=== PATIENT | female | born 1985 | race Two or more races ===

== ENCOUNTER 2017-10-29 16:33 | Emergency (ER) | payer BC ==
[2017-10-29 17:20] VITALS: BP 111/72; PULSE 88; RESP 18; TEMP 100.1
[2017-10-29] MEDS ORDERED: ONDANSETRON ODT 4 MG TAB PO STA (18:42)
--- NOTE | 2017-10-29 18:46 | ED ---
Head Injury HPI - General Chief complaint: Head Injury Stated complaint: Head Injury Time Seen by Provider: 10/29/17 18:28 Source: patient, RN notes reviewed Mode of arrival: ambulatory Limitations: no limitations - History of Present Illness Initial comments: This is a 32-year-old female who presents to the emergency department with chief complaint of head injury. Patient states that yesterday morning she was sledding. She states that she fell and hit the right side of her head twice. Patient states that since yesterday she has had intermittent dizziness and constant nausea. She denies any episodes of vomiting. She denies any loss of consciousness. She states that she has a mild headache on the left side of her head. She also complains of a neck muscle strain that makes it difficult for her to shift her head to the right due to the pain. She denies any vision changes. Denies any recent illnesses. She does have a fever on presentation, but states that she feels well. Denies sore throat, cough, abdominal pain, diarrhea or constipation, dysuria or hematuria. - Related Data Home Medications Medication Instructions Recorded Confirmed Ibuprofen [Motrin Ib] 400 mg PO TID PRN 10/29/17 10/29/17 Allergies/Adverse reactions: Allergies Allergy/AdvReac Type Severity Reaction Status Date / Time neomycin Allergy Rash/Hives Verified 10/29/17 18:50 Review of Systems ROS Statement: Those systems with pertinent positive or pertinent negative responses have been documented in the HPI. ROS Other: All systems not noted in ROS Statement are negative. Past Medical History Additional Past Medical History / Comment(s): kidney stones, concussion History of Any Multi-Drug Resistant Organisms: None Reported Past Surgical History: No Surgical Hx Reported Past Psychological History: No Psychological Hx Reported Smoking Status: Never smoker Past Alcohol Use History: Occasional Past Drug Use History: None Reported General Exam Limitations: no limitations Course Vital Signs 10/29/17 17:17 Temperature 100.1 F H Pulse Rate 88 Respiratory 18 Rate Blood Pressure 111/72 O2 Sat by Pulse 100 Oximetry Medical Decision Making - Medical Decision Making This is a 32-year-old female who presents to the emergency department with chief complaint of head injury. Patient states that she hit her head 2 times on the ground yesterday morning while sledding. She complains of intermittent dizziness and constant nausea as well as a mild headache and neck muscle strain since that time. Denies loss of consciousness. Computed tomography scan of the brain revealed no intracranial hemorrhages or other acute abnormalities. Patient suffering from a concussion. She is to follow-up with her primary care provider in 1-2 days. She is to rest and refrain from any activity that causes symptoms. Patient is in no acute distress and will be discharged home. She will be given Zofran to help with her nausea. Patient is in agreement with plan and voices understanding. All questions were answered. - Radiology Data Radiology results: report reviewed CT brain without contrast conclusion: Negative computed tomography scan of the brain. Normal exam. Disposition Clinical Impression: Concussion without loss of consciousness Disposition: HOME SELF-CARE Condition: Good Instructions: Concussion (ED) Additional Instructions: Please take medications as prescribed. Please rest and refrain from any activity that causes symptoms including: dizziness, nausea, headache or difficulty concentrating. Please follow up with primary care provider within 1- 2 days. Return to emergency department if symptoms should worsen or any concerns arise. Referrals: Osmani Regalado MD [Primary Care Provider] - 1-2 days Time of Disposition: 19:12
--- NOTE | 2017-10-29 19:06 | CT ---
EXAMINATION TYPE: CT brain wo con DATE OF EXAM: 10/29/2017 COMPARISON: NONE HISTORY: Slip and fall. CT DLP: 1112 mGycm. Automated Exposure Control for Dose Reduction was Utilized. TECHNIQUE: CT scan of the head is performed without contrast. FINDINGS: Ventricles and sulci appear normal. There is no mass effect nor midline shift. There is no sign of intracranial hemorrhage. The calvarium appears intact. The skull base appears intact. CONCLUSION: Negative CT scan of the brain. Normal exam.
[2017-10-29] MEDS ORDERED: ONDANSETRON 4 MG ODT STARTER PACK 2 TAB BTL PO STA (19:12)
== END 2017-10-29 19:23 | disposition home or self-care (01) ==
LOC: EC 16:33
DX: S06.0X0A Concussion without loss of consciousness, initial encounter (principal); S16.1XXA Strain of muscle, fascia and tendon at neck level, initial encounter; Z88.1 Allergy status to other antibiotic agents; W18.30XA Fall on same level, unspecified, initial encounter; Y93.23 Activity, snow (alpine) (downhill) skiing, snowboarding, sledding, tobogganing and snow tubing
CPT/HCPCS: 70450; 99283; S0119

== ENCOUNTER → 2023-03-16 | Outpatient (CLI) | payer BC ==
[2023-03-16 10:53] LABS: Appearance,Urine Clear (Clear); Bilirubin,Urine Negative (Negative); Blood,Urine Negative (Negative); Color,Urine Yellow; Glucose,Urine (UA) Negative (Negative); Ketones,Urine Trace (Negative); Leukocyte Esterase,Urine Negative (Negative); Nitrite,Urine Negative (Negative); Protein,Urine Negative (Negative); Specific Gravity,Urine 1.016 (1.001-1.035); Urobilinogen,Urine <2.0 mg/dL (<2.0)
[2023-03-16 11:01] LABS: Partial Thromboplastin Time 24.8 sec (22.0-30.0); Prothrombin Time 10.7 sec (9.0-12.0)
[2023-03-16 16:24] LABS: Basophils # (A) 0.04 X 10*3/uL (0.00-0.10); Basophils % (A) 0.5 %; Eosinophils # (A) 0.15 X 10*3/uL (0.04-0.35); Eosinophils % (A) 1.9 %; HCT 42.1 % (37.2-46.3); HGB 12.9 d/dL (12.0-15.0); Lymphocytes # (A) 2.11 X 10*3/uL (0.90-5.00); Lymphocytes % (A) 26.6 %; MCH 28.5 pg (27.0-32.0); MCHC 30.6 d/dL (32.0-37.0); MCV 93.1 FL (80.0-97.0); Mean Platelet Volume 10.2 FL (9.5-12.2); Monocytes # (A) 0.44 X 10*3/uL (0.20-1.00); Monocytes % (A) 5.5 %; NRBC Per 100 WBC 0 X 10*3/uL (0.00-0.01); Neutrophils # (A) 5.17 X 10*3/uL (1.80-7.70); Neutrophils % (A) 65.2 %; Platelet Count 296 X 10*3/uL (140-440); RBC 4.52 X 10*6/uL (4.10-5.20); RDW 12.9 % (11.5-14.5); WBC 7.93 X 10*3/uL (4.50-10.00)
[2023-03-16 16:41] LABS: ALT 13 U/L (8-44); AST 17 U/L (13-35); Albumin 4.6 d/dL (3.8-4.9); Albumin/Globulin Ratio 1.64 Ratio (1.60-3.17); Alkaline Phosphatase 55 U/L (41-126); BUN/Creat Ratio 10.25 Ratio (12.00-20.00); Blood Urea Nitrogen 8.2 mg/dL (9.0-27.0); Calcium 9.7 mg/dL (8.7-10.3); Carbon Dioxide 23.8 mmol/L (21.6-31.8); Chloride 105 mmol/L (96-109); Globulin 2.8 d/dL (1.6-3.3); Glucose 81 mg/dL (70-110); HCG,Quantitative Serum <3.0 mIU/mL (0.0-6.0); Potassium 4.1 mmol/L (3.5-5.5); Sodium 139 mmol/L (135-145); T4, Free (Free Thyroxine) 1.25 ng/dL (0.80-1.80); Total Bilirubin 0.7 mg/dL (0.3-1.2); Total Protein 7.4 d/dL (6.2-8.2)
[2023-03-16 19:00] LABS: HIV 2 AB Non-Reactive (Non-Reactive); HIV AB P24 Non-Reactive (Non-Reactive); HIV P24 AG Non-Reactive (Non-Reactive)
== END | disposition home or self-care (01) ==
LOC: LABWHC1 09:55
PROVIDERS: ATTEND Nurse Practitioner Family
DX: Z01.812 Encounter for preprocedural laboratory examination (principal)
CPT/HCPCS: 36415; 80053; 81003; 83036; 84439; 84443; 84481; 84702; 85025; 85610; 85730; 87390

== ENCOUNTER 2023-04-14 20:34 | Emergency (ER) | payer BC ==
[2023-04-14 20:55] VITALS: TEMP 99.2
--- NOTE | 2023-04-15 01:55 | ED ---
General Adult HPI - General Chief complaint: Abdominal Pain Stated complaint: Lump in abdomen Source: patient, RN notes reviewed Mode of arrival: ambulatory Limitations: no limitations - History of Present Illness Initial comments: 37-year-old female with no significant past medical history presents the emergency department with a chief complaint of lump in abdomen. Patient reports that she noticed the lump in abdomen for a couple of weeks. She was seen at urgent care prior to arrival who diagnosed her with strep throat. She mentioned her abdominal complaint and mention that her mother had a history of colon cancer for which she reports that urgent care recommended she be evaluated in the ED. She denies any specific complaints at this time. Denies complaints of Of nausea, vomiting, it is not painful. - Related Data Home Medications Medication Instructions Recorded Confirmed Ibuprofen [Motrin Ib] 400 mg PO TID PRN 10/29/17 10/29/17 Allergies Allergy/AdvReac Type Severity Reaction Status Date / Time neomycin Allergy Rash/Hives Verified 10/29/17 18:50 Review of Systems ROS Statement: Those systems with pertinent positive or pertinent negative responses have been documented in the HPI. ROS Other: All systems not noted in ROS Statement are negative. Past Medical History Additional Past Medical History / Comment(s): kidney stones, concussion History of Any Multi-Drug Resistant Organisms: None Reported Past Surgical History: No Surgical Hx Reported Past Psychological History: No Psychological Hx Reported Smoking Status: Never smoker Past Alcohol Use History: Occasional Past Drug Use History: None Reported General Exam - General Exam Comments Initial Comments: General: Alert, in no acute distress Head: atraumatic normocephalic. Eyes PERRL, EOMI intact, mucous membranes moist Respiratory: Lungs clear to auscultation bilaterally Cardiovascular: Rate regular rate and rhythm Abdominal: Soft without guarding or rebound, reducible hernia right lower quadrant that is nontender Extremities: Normal inspection with full range of motion and normal capillary refill Neuroogic: alert and oriented 3, CN II-XII intact, able to ambulate with steady gait Skin: warm dry and intact with normal color Limitations: no limitations Course Vital Signs 04/14/23 04/15/23 20:51 01:57 Temperature 99.2 F Pulse Rate 90 88 Respiratory 16 18 Rate Blood Pressure 121/73 114/76 O2 Sat by Pulse 100 99 Oximetry Medical Decision Making - Medical Decision Making Was pt. sent in by a medical professional or institution (KRISTEL Dyer, ART THERAPY SPECIALIST, urgent care, hospital, or fci...) When possible be specific @ -[No] Did you speak to anyone other than the patient for history (EMS, parent, family, police, friend...)? What history was obtained from this source @ -[No] Did you review nursing and triage notes (agree or disagree)? Why? @ -[I reviewed and agree with nursing and triage notes] Were old charts reviewed (outside hosp., previous admission, EMS record, old EKG, old radiological studies, urgent care reports/EKG's, fci records)? Report findings @ -[No old charts were reviewed] Differential Diagnosis (chest pain, altered mental status, abdominal pain women, abdominal pain men, vaginal bleeding, weakness, fever, dyspnea, syncope, headache, dizziness, GI bleed, back pain, seizure, CVA, palpatations, mental health, musculoskeletal)? @ -[not applicable] EKG interpreted by me (3pts min.). @ -[As above] X-rays interpreted by me (1pt min.). @ -[None done] CT interpreted by me (1pt min.). @ -[None done] U/S interpreted by me (1pt. min.). @ -[None done] What testing was considered but not performed or refused? (CT, X-rays, U/S, labs)? Why? @ -[None] What meds were considered but not given or refused? Why? @ -[None] Did you discuss the management of the patient with other professionals (professionals i.e. KRISTEL Dyer, ART THERAPY SPECIALIST, lab, RT, psych nurse, aids social worker, tree trimmer helper, teacher, grant officer, hospice case manager)? Give summary @ -[No] Was smoking cessation discussed for >3mins.? @ -[No] Was critical care preformed (if so, how long)? @ -[No] Were there social determinants of health that impacted care today? How? (Homelessness, low income, unemployed, alcoholism, drug addiction, transportation, low edu. Level, literacy, decrease access to med. care, residential, rehab)? @ -[No] Was there de-escalation of care discussed even if they declined (Discuss DNR or withdrawal of care, Hospice)? DNR status @ -[No] What co-morbidities impacted this encounter? (DM, HTN, Smoking, COPD, CAD, Cancer, CVA, ARF, Chemo, Hep., AIDS, mental health diagnosis, sleep apnea, morbid obesity)? @ -[None] Was patient admitted / discharged? Hospital course, mention meds given and route, prescriptions, significant lab abnormalities, going to OR and other pertinent info. @ -[Discharge. This is a pleasant 37-year-old female who presents to the emergency department with a chief complaint of right lower quadrant abdo stacy problem. Patient had a thorough history and physical exam performed on the ED. Patient is in no acute distress. Physical exam is consistent with hernia. It is not tender. It is easily reduced. I discussed the natural history of hernia with the patient verbalized understanding all questions were addressed. Return precautions will be discussed at length. Patient verbalized understanding and all questions were addressed. She'll be discharged in stable condition. She was given a referral for general surgeon. case discussed with SALO Smith who agrees with plan of care Undiagnosed new problem with uncertain prognosis? @ -[No] Drug Therapy requiring intensive monitoring for toxicity (Heparin, Nitro, Insulin, Cardizem)? @ -[No] Were any procedures done? @ -[No] Diagnosis/symptom? @ -Hernia Acute, or Chronic, or Acute on Chronic? @ -Acute Uncomplicated (without systemic symptoms) or Complicated (systemic symptoms)? @ -Uncomplicated Side effects of treatment? @ -[No] Exacerbation, Progression, or Severe Exacerbation? @ -[No] Poses a threat to life or bodily function? How? (Chest pain, [place], [place], pneumonia, PE, COPD, DKA, ARF, appy, cholecystitis, CVA, Diverticulitis, Homicidal, Suicidal, threat to staff... and all critical care pts) @ -Low likelihood Disposition Clinical Impression: Hernia Disposition: HOME SELF-CARE Condition: Stable Instructions (If sedation given, give patient instructions): Ventral Hernia Repair (DC) Additional Instructions: Return to the emergency department symptoms worsen or persist Is patient prescribed a controlled substance at d/c from ED?: No Referrals: Vicente Tanner DO [Primary Care Provider] - 1-2 days Fazal Garza MD [STAFF PHYSICIAN] - 1-2 days Time of Disposition: 01:50
[2023-04-15 02:07] VITALS: BP 114/76; PULSE 88; RESP 18
== END 2023-04-15 02:07 | disposition home or self-care (01) ==
LOC: EC 20:34
DX: K46.9 Unspecified abdominal hernia without obstruction or gangrene (principal); Z88.1 Allergy status to other antibiotic agents
CPT/HCPCS: 99283

== ENCOUNTER → 2024-02-15 | Outpatient (CLI) | payer OTHER ==
--- NOTE | 2024-02-15 11:27 | XR ---
EXAMINATION TYPE: XR shoulder complete 3 views RT DATE OF EXAM: 02/15/2024 Comparison: None Clinical History: 38-year-old female S46.011A STRAIN OF MUSC/TEND THE ROTATOR CUFF OF R Findings: Mild degenerative joint space narrowing at the AC joint. Subacromial space is preserved. Smooth delin eation to the greater tuberosity. No acute fracture, subluxation, dislocation seen. Impression: Mild AC joint OA. No acute osseous abnormality seen.
== END | disposition home or self-care (01) ==
LOC: RADXRMAIN 10:29
PROVIDERS: ATTEND Emergency Medicine
DX: M19.011 Primary osteoarthritis, right shoulder (principal); S46.011A Strain of muscle(s) and tendon(s) of the rotator cuff of right shoulder, initial encounter; X58.XXXA Exposure to other specified factors, initial encounter

== ENCOUNTER → 2024-02-28 | Outpatient (CLI) | payer OTHER ==
--- NOTE | 2024-02-28 19:54 | MR ---
EXAMINATION TYPE: MR shoulder RT wo con DATE OF EXAM: 02/28/2024 COMPARISON: None HISTORY: Right shoulder pain, S/P injury 6 weeks ago. TECHNIQUE: Multiplanar, multisequence imaging of the right shoulder is performed without contrast. FINDINGS: There is no bone contusion or fracture. There is no significant degeneration of the AC joint or gleno humeral joint. There is a tiny rim rent tear at the very anterior aspect of the supraspinatus tendon without retract ion of the muscle tendinous junction. The infraspinatus and subscapularis tendons are intact. The biceps tendon is normal in signal intensity and position of the bicipital groove the biceps ancho r is intact. There is no tear of the cartilaginous labrum. There is minimal subdeltoid bursitis. IMPRESSION: Remnant tear of the anterior aspect of the supraspinatus tendon as described above. Possible mild sub deltoid bursitis. No other significant abnormality.
== END | disposition home or self-care (01) ==
LOC: RADMRIMAIN 17:50
PROVIDERS: ATTEND Emergency Medicine
DX: S46.011D Strain of muscle(s) and tendon(s) of the rotator cuff of right shoulder, subsequent encounter (principal)

== ENCOUNTER 2024-05-01 05:56 | Day surgery (SDC) | payer OTHER ==
[2024-05-01] MEDS ORDERED: DEXAMETHASONE SOD PHOSPHATE 4 MG/ML 1 ML VIAL ONE ×2 (06:49)
[2024-05-01] MEDS ORDERED: ONDANSETRON 4 MG/2 ML VIAL ONE ×2 (06:49)
[2024-05-01] MEDS ORDERED: fentaNYL (PF) 50 MCG/ML 2 ML AMP ONE ×2 (06:49)
[2024-05-01] MEDS ORDERED: MIDAZOLAM 2 MG/2 ML VIAL ONE ×2 (06:50)
[2024-05-01] MEDS ORDERED: ROPIVACAINE 5 MG/ML 30 ML VIAL ONE ×2 (06:50)
[2024-05-01] MEDS ORDERED: SODIUM CHLORIDE 0.9% 50 ML BAG ONE (07:30)
[2024-05-01] MEDS ORDERED: LIDOCAINE 1% INJ 10MG/ML (20 ML MDV) ONE (07:30)
[2024-05-01] MEDS ORDERED: ceFAZolin 1,000 MG VIAL ONE (07:30)
[2024-05-01] MEDS ORDERED: LACTATED RINGERS 1,000 ML BAG ONE (07:30)
[2024-05-01] MEDS ORDERED: PROPOFOL 10 MG/ML 20 ML VIAL IV ONE (07:30)
--- NOTE | 2024-05-02 15:57 | HP ---
HISTORY AND PHYSICAL Surgery, 05/01/2024. HISTORY OF PRESENT ILLNESS: Celeste Galdamez is a 38-year-old patient seen with progressive right shoulder pain. We discussed options regarding treatment. She elected to proceed with right shoulder arthroscopy. Consent was obtained. PAST MEDICAL HISTORY: Noncontributory. PAST SURGICAL HISTORY: Noncontributory. DAILY MEDICATIONS: None. ALLERGIES: Neomycin. SOCIAL HISTORY: She denies tobacco use. PHYSICAL EVALUATION OF THE RIGHT SHOULDER: Flexion is 150 degrees, abduction 140 degrees, external rotation is 40 degrees with pain and weakness. Tenderness along the anterolateral acromion rotator cuff insertion site. Impingement sign is positive at 90 degrees. Drop-arm sign is positive. Distal neurovascular exam is intact. RADIOGRAPHS: Right shoulder revealed a lateral downsloping acromion. MRI right shoulder revealed rotator cuff tendon tear. IMPRESSION: Right shoulder impingement with rotator cuff tear. PLAN: Right shoulder arthroscopy, subacromial decompression, arthroscopic rotator cuff repair and debridement. MMODL / IJN: [id number] /
--- NOTE | 2024-06-13 14:36 | OP ---
OPERATIVE REPORT DATE OF SERVICE : 05/01/2024 PREOPERATIVE DIAGNOSIS: Right shoulder impingement with rotator cuff tear. POSTOPERATIVE DIAGNOSES: 1. Right shoulder rotator cuff tear. 2. Right shoulder impingement. PROCEDURES: 1. Right shoulder arthroscopic rotator cuff repair. 2. Right shoulder arthroscopic subacromial decompression. SOAPSTONER: Carlos Thayer. ANESTHESIA: General with a preoperative interscalene block. COMPLICATIONS: None. ESTIMATED BLOOD LOSS: 10 mL. IMPLANTS UTILIZED: Arthrex 4.75 SwiveLock anchor 1. INDICATIONS: Celeste Galdamez is a patient seen with right shoulder pain consistent with rotator cuff tear. We discussed options. She elected to proceed with arthroscopy. Consent was obtained. PROCEDURE DETAILS: The patient was taken to the operative suite after having undergone an interscalene block by the Department of Anesthesia. She underwent a general anesthetic by the Department of Anesthesia. She received preoperative IV antibiotics. She was placed in a lateral position. Bony prominences were secured. The right upper extremity was placed in a longitudinal traction 10 pounds. Right shoulder prepped and draped in normal sterile orthopedic fashion. A posterior incision was made for posterior working portal site. Trocar and cannula were inserted in the glenohumeral joint. Arthroscopy initiated. A spinal needle was inserted anteriorly for the anterior working portal site. Incision was made. Trocar inserted followed by a probe. The labrum was probed and was stable. There was grade 1 chondromalacia of the humeral head. No tears. The biceps appeared stable. No other abnormality noted in the glenohumeral joint. Instruments were now removed. Utilizing the posterior working portal site, the trocar and cannula were inserted in the subacromial space. Arthroscopy was initiated. An incision was made 2 fingerbreadths lateral to the acromion. I introduced the trocar followed by Arthro cautery ablator. I debrided some thick subacromial bursal tissue, exposing the undersurface of the anterior acromion. I introduced a motorized bur and performed a subacromial decompression. I evaluated the acromioclavicular joint. It appeared stable with no significant osteoarthritis. I turned my attention to the rotator cuff tendon. I probed the area. There was a full-thickness tear involving the distal supraspinatus tendon measuring less than a cm. I debrided the margins getting down to stable tendon tissue. I debrided the footprint with a motorized bur with the assistance of KRISTEL Cosme. I passed 2 everted mattress sutures through good bites of rotator cuff tendon. I punched a hole on the footprint area for insertion of an anchor. All 4 limbs of suture were passed through the eyelet of an Arthrex 4.75 SwiveLock anchor. I placed the eyelet into the pre punch hole. I held it in position while KRISTEL Cosme, tensioned the sutures and deployed the anchor with good fixation noted. All residual suture limbs were clipped. The repair was probed and was found to be stable. Instruments were removed from the subacromial space. The portal sites were repaired with nylon suture. Sterile dressings were applied. She was placed into a sling, awakened, transferred to a bed, then recovery in stable condition having tolerated the procedure well. KRISTEL Cosme, assisted in all aspects of this procedure. MMODL / IJN: [id number] /
== END 2024-05-01 10:39 ==
LOC: OR 05:56
PROVIDERS: ATTEND Orthopaedic Surgery
DX: M75.101 Unspecified rotator cuff tear or rupture of right shoulder, not specified as traumatic (principal); M25.811 Other specified joint disorders, right shoulder; Z88.1 Allergy status to other antibiotic agents
CPT/HCPCS: 64415; 81025

== ENCOUNTER 2024-06-23 09:33 | Day surgery (SDC) | payer BC, OTHER ==
[2024-06-20 11:27] VITALS: BMI 47.9
[~2024-06-23 09:33] MED LIST: LIDOCAINE 1% (10MG/ML) FOR IV START INTRADERMA PRN
[2024-06-23] MEDS: IV FLUID CONTINUATION 1,000 ML IV ONE (09:56)
[2024-06-23 10:01] VITALS: TEMP 97.7
[2024-06-23] MEDS: LACTATED RINGERS 1,000 ML IV SCH (10:16)
[2024-06-23] MEDS ORDERED: PROPOFOL 10 MG/ML 20 ML VIAL IV ONE (10:28)
[2024-06-23] MEDS ORDERED: LIDOCAINE 2% (PF) 20 MG/ML 5 ML VIAL ONE (10:28)
--- NOTE | 2024-06-23 11:12 | P.PCN ---
Date of Procedure: 06/23/24 Preoperative Diagnosis: Family history of colon cancer Bloating Epigastric pain Postoperative Diagnosis: Gastritis Cecal polyp Procedure(s) Performed: EGD with biopsy Colonoscopy with tattoo Anesthesia: MAC Surgeon: Marianne Ford Pathology: other (Biopsies of duodenum, antrum, GE junction) Condition: stable Disposition: same day Indications for Procedure: 39-year-old female presents today for upper and lower endoscopy. She has had bloating and epigastric pain and is concerned of candidiasis and upper GI issue. Plan is for upper endoscopy with biopsy. Patient is agreeable with this plan. Patient also has family history of colon cancer with mother being diagnosed with colon cancer. She has had colonoscopy about 15 years ago. She is requesting that no biopsy or polypectomy be performed as she is concerned that this will cause cancer to spread. I spent significant amount of time discussing the case and explaining the indications and reasoning behind polypectomy during colonoscopy, especially with patients with family history of colon cancer. She is adamant about no removal of polyp or biopsy of polyp as she wants to try natural pathway to removal of polyp. She is amenable to tattoo of the area of the polyp. She understands the risks of developing colon cancer by leaving polyp in place and understands risks of metastasis of colon cancer as well. Operative Findings: Gastritis Cecal polyp Description of Procedure: The patient was brought to the endoscopy suite and placed in left lateral decubitus position and adequate sedation was achieved using conscious sedation. A bite-block was placed and an endoscope was placed in the oropharynx and advanced under endoscopic visualization. The endoscope was advanced through the esophagus into the stomach, through the gastric antrum and in through the pylorus. The third portion of duodenum was visualized. The endoscope was then slowly withdrawn. The first portion of duodenum was noted to have mild inflammatory changes. Biopsies were taken. The antrum was noted to have mild inflammatory changes. Biopsies were taken. The gastric body distended normally and the gastric folds appeared normal and flattened with insufflation. A retroflexed view of fundus and GE junction revealed no significant hiatal hernia. The esophagus appeared endoscopically normal and GE junction biopsy was taken. Excess air was removed and the scope was withdrawn. A digital rectal exam was performed and mild internal hemorrhoids were palpated. An endoscope was then placed in the rectum and advanced to the cecum as identified by landmarks including the appendiceal orifice and the ileocecal valve. The prep was excellent. The colonoscopy was slowly withdrawn, examining for any mucosal abnormalities. The cecum, ascending, transverse, descending and sigmoid colon were visualized adequately. The cecum was noted to have a polyp just at the entrance of the ileocecal valve. As requested per patient, no biopsy or polypectomy was performed and site was tattooed. Retroflexion was performed in the rectum and internal hemorrhoids were visible. No other mucosal changes throughout the colon. Excess air was removed, the colonoscope withdrawn and the procedure terminated. The patient was then transferred to recovery unit in stable condition. Case was discussed with the patient with recommendation of repeat colonoscopy as soon as possible for removal of this polyp.
[2024-06-23 11:49] VITALS: BP 102/65; PULSE 61; RESP 18
== END 2024-06-23 11:57 | disposition home or self-care (01) ==
LOC: ORWHC2ENDO 09:33
PROVIDERS: ATTEND Surgery
CPT/HCPCS: 43239; 45381; 81025; 88305

== ENCOUNTER → 2024-08-15 | Outpatient (CLI) | payer BC ==
[2024-08-15 14:04] LABS: Partial Thromboplastin Time 24.3 sec (22.0-30.0)
[2024-08-15 19:34] LABS: ALT 15 U/L (8-44); AST 17 U/L (13-35); Albumin 4.2 g/dL (3.8-4.9); Albumin/Globulin Ratio 1.75 Ratio (1.60-3.17); Alkaline Phosphatase 55 U/L (41-126); BUN/Creat Ratio 16.14 Ratio (12.00-20.00); Blood Urea Nitrogen 11.3 mg/dL (9.0-27.0); Calcium 8.9 mg/dL (8.7-10.3); Carbon Dioxide 23.6 mmol/L (21.6-31.8); Chloride 107 mmol/L (96-109); Globulin 2.4 g/dL (1.6-3.3); Glucose 81 mg/dL (70-110); HCG,Quantitative Serum <3.0 mIU/mL (0.0-6.0); Potassium 3.9 mmol/L (3.5-5.5); Sodium 140 mmol/L (135-145); T4, Free (Free Thyroxine) 1.44 ng/dL (0.80-1.80); Total Bilirubin 0.4 mg/dL (0.3-1.2); Total Protein 6.6 g/dL (6.2-8.2)
[2024-08-15 19:51] LABS: Appearance,Urine Turbid (Clear); Bilirubin,Urine Negative (Negative); Blood,Urine Negative (Negative); Color,Urine Yellow (Yellow); Ketones,Urine Negative (Negative); Nitrite,Urine Negative (Negative); Specific Gravity,Urine 1.024 (1.001-1.030); Urobilinogen,Urine 0.2 E.U./DL
[2024-08-15 19:59] LABS: Bacteria,Urine None Seen (None Seen)
[2024-08-15 20:22] LABS: Basophils # (A) 0.04 X 10*3/uL (0.00-0.10); Basophils % (A) 0.6 %; Eosinophils # (A) 0.21 X 10*3/uL (0.04-0.35); Eosinophils % (A) 3.2 %; HCT 39.1 % (37.2-46.3); HGB 12.6 g/dL (12.0-15.0); Lymphocytes # (A) 2.36 X 10*3/uL (0.90-5.00); Lymphocytes % (A) 36.4 %; MCH 28.8 pg (27.0-32.0); MCHC 32.2 g/dL (32.0-37.0); MCV 89.3 FL (80.0-97.0); Mean Platelet Volume 9.9 FL (9.5-12.2); Monocytes % (A) 7.7 %; NRBC Per 100 WBC 0 X 10*3/uL (0.00-0.01); Neutrophils # (A) 3.36 X 10*3/uL (1.80-7.70); Neutrophils % (A) 51.8 %; Platelet Count 259 X 10*3/uL (140-440); RBC 4.38 X 10*6/uL (4.10-5.20); RDW 13.8 % (11.5-14.5); WBC 6.49 X 10*3/uL (4.50-10.00)
[2024-08-15 22:34] LABS: HIV 2 AB Non-Reactive (Non-Reactive); HIV AB P24 Non-Reactive (Non-Reactive); HIV P24 AG Non-Reactive (Non-Reactive)
== END | disposition home or self-care (01) ==
LOC: LABWHC1 12:17
PROVIDERS: ATTEND Plastic Surgery
DX: Z01.812 Encounter for preprocedural laboratory examination (principal)
CPT/HCPCS: 36415; 80053; 81001; 83036; 84439; 84443; 84481; 84702; 85025; 85610; 85730; 87390